=== PATIENT | male | born 1965 | race Caucasian/White ===

== ENCOUNTER 2016-12-09 18:55 | Emergency (ER) | payer MEDICARE, MEDICAID ==
[2016-12-09] MEDS ORDERED: Tetan/Diph/Pertus SYR(Tdap)* 0.5 ML SYR(BOOSTRIX) use SYR IM ONE (19:40)
[2016-12-09] MEDS ORDERED: Ibuprofen TAB* 600 MG PO ONE (19:40)
--- NOTE | 2016-12-09 19:56 | ED ---
Upper Extremity Pain - HPI Summary HPI Summary: Patient was using a drill when it slipped and went into his left middle finger. He applied pressure to control bleeding. He has function in the digit. He does not know if his tetanus is up to date. He has not taken anything for pain. - History of Current Complaint Chief Complaint: EDExtremityUpper Stated Complaint: FINGER LAC Time Seen by Provider: 12/09/16 19:29 Hx Obtained From: Patient Mechanism Of Injury: Penetrating Trauma - drill Onset/Duration: Started Minutes Ago, Traumatic, Still Present Timing: Constant Severity Initially: Severe Severity Currently: Severe Pain Location: Finger Character: Sharp, Aching, Throbbing Aggravating Factor(s): Movement Alleviating Factor(s): Nothing Associated Signs & Symptoms: Positive: Negative Related History: Dominant Hand Right - Allergies/Home Medications Allergies/Adverse Reactions: Allergies Allergy/AdvReac Type Severity Reaction Status Date / Time No Known Allergies Allergy Verified 12/09/16 19:14 PMH/Surg Hx/FS Hx/Imm Hx Endocrine/Hematology History: Denies: Hx Anticoagulant Therapy Cardiovascular History: Reports: Hx Hypertension Respiratory History: Reports: Hx Asthma - pt denies, Hx Chronic Obstructive Pulmonary Disease (COPD) - pt denies Psychiatric History: Denies: Hx Eating Disorder, Hx of Violent Episodes Against Others Infectious Disease History: No Infectious Disease History: Denies: Traveled Outside the [place] in Last 30 Days - Family History Known Family History: Positive: None - Social History Occupation: Employed Full-time Lives: With Family Alcohol Use: Daily Alcohol Amount: 4 beers Substance Use Type: Reports: None Smoking Status (MU): Heavy Every Day Tobacco Smoker Cessation Counseling: Patient Advised to Stop Review of Systems Positive: Myalgia Positive: Other - 2.5 cm V-flap laceration to volar aspect of left middle finger Negative: Paresthesia, Numbness All Other Systems Reviewed And Are Negative: Yes Physical Exam Triage Information Reviewed: Yes Vital Signs On Initial Exam: Initial Vitals Temp Pulse Resp BP Pulse Ox 99.6 F 73 16 144/95 99 12/09/16 19:10 12/09/16 19:10 12/09/16 19:10 12/09/16 19:10 12/09/16 19:10 Vital Signs Reviewed: Yes Appearance: Positive: Well-Appearing, Pain Distress, Obese Skin: Positive: Warm, Skin Color Reflects Adequate Perfusion, Dry, Tender - 2.5 cm V-flap laceration to volar aspect of left middle finger, Soft Head/Face: Positive: Normal Head/Face Inspection Eyes: Positive: EOMI, MARYAM, Conjunctiva Clear ENT: Positive: Hearing grossly normal Respiratory/Lung Sounds: Positive: Breath Sounds Present Cardiovascular: Positive: RRR Musculoskeletal: Positive: Strength/ROM Intact, Pain @ - TTP middle phalanx of left middle digit Neurological: Positive: Sensory/Motor Intact, Alert, Oriented to Person Place, Time, NV Bundle Intact Distally Psychiatric: Positive: Affect/Mood Appropriate AVPU Assessment: Alert Procedures - Laceration/Wound Repair 1 Location: upper extremity - left middle digit Description: Linear - V-flap Anesthesia: Local, 2.0%, Lido Length, Depth and Shape: 2.5 cm V-flap long, 5mm wide, 3mm deep. Betadine Prep?: No Irrigated w/ Saline (ccs): 300 Laceration/Wound Explored: clean Closure: Single Layer Debridement: minimal Suture Type: Nylon - 4.0 Number of Sutures: 9 Layer Closure?: No Sterile Dressing Applied?: Yes Diagnostics - Vital Signs Vital Signs Temp Pulse Resp BP Pulse Ox 12/09/16 19:42 99.6 F 73 16 144/95 99 12/09/16 19:10 99.6 F 73 16 144/95 99 - Laboratory Lab Statement: Any lab studies that have been ordered have been reviewed, and results considered in the medical decision making process. - Radiology No standard instances Xray Interpretation: No Acute Changes Radiology Interpretation Completed By: Radiologist Course/Dx - Diagnoses Differential Diagnosis/HQI/PQRI: Positive: Arthritis, Bursitis, Contusion, Fracture (Closed), Laceration, Strain, Sprain Provider Diagnoses: Laceration Discharge - Discharge Plan Condition: Stable Disposition: HOME Prescriptions: Ibuprofen TAB* [Motrin TAB* 600 MG] 600 mg PO TID PRN #30 tab PRN Reason: Pain Patient Education Materials: Tetanus Toxoid (By injection), Finger Laceration ( ED) Referrals: Tomi Da Silva DO [Primary Care Provider] - Additional Instructions: Keep your dressing clean, dry and in place for the next 48 hours. You may then remove and shower. Pat dry and cover with a clean, dry band-aid if you are going to be in a "dirty" environment, otherwise it can remain open to air. Do not soak the wound in any body of water until the sutures are removed. Elevate the hand above your heart and use Ibuprofen 600mg three times daily with meals for the next 5-7 days to reduce pain and swelling. Follow-up with your primary care provider or return to the emergency department in 10-12 days for suture removal. Return to the emergency department sooner if your symptoms worsen.
[2016-12-09] MEDS ORDERED: oxyCODONE/Acetamin 5/325 MG* TAB PO ONE (20:25)
--- NOTE | 2016-12-09 20:35 | RAD ---
Indication: Left hand injury. 4 views of left hand demonstrates no fracture or dislocation. No radiopaque foreign body is noted. No other bone or joint abnormalities identified. Soft tissue defect is noted in the middle finger in the volar aspect overlying the middle phalanx. IMPRESSION: No radiopaque foreign body or fracture is noted. Soft tissue defect on the volar aspect of the third finger at the level of the middle phalanx.
[2016-12-09 21:18] VITALS: BP 114/71
== END 2016-12-09 21:17 | disposition home or self-care (01) ==
LOC: ED 18:55
DX: S61.213A Laceration without foreign body of left middle finger without damage to nail, initial encounter (principal); M79.1 Myalgia; W29.8XXA Contact with other powered hand tools and household machinery, initial encounter; Y93.9 Activity, unspecified; Y92.9 Unspecified place or not applicable
CPT/HCPCS: 90715; 96374; 99283; A9270-GY

== ENCOUNTER 2019-04-22 00:45 | Inpatient (IN) | payer MEDICARE, MEDICAID ==
[2019-04-22] MEDS ORDERED: Aspirin 81 mg CHEW TAB* 81 MG TAB.CHEW ONE (00:47)
[2019-04-22] MEDS ORDERED: Ticagrelor* 90 MG TAB PO ONE (00:50)
[2019-04-22] MEDS ORDERED: NS 0.9% 1000 ML** 1,000 ML IV ONE (00:50)
[2019-04-22] MEDS ORDERED: Aspirin 81 mg CHEW TAB* 81 MG TAB.CHEW PO ONE (00:50)
[2019-04-22] MEDS ORDERED: Heparin for STEMI(*) 5,000 UNITS/ML 1 ML VIAL IV ONE (00:50)
--- NOTE | 2019-04-22 01:00 | ED ---
HPI Chest Pain - HPI Summary HPI Summary: This patient is a 54 year old M presenting to [facility] via EMS with a chief complaint of CP since an hour ago. CP woke patient from rest, was 10/10 crushing L sided pain. Pt was diaphoretic when EMS arrived. Pt was given fluid and adenosine for SVT. Post adenosine EKG w elevations in aVR, dep I, II, V45. Patient states pain slightly better, states he never had this pain before. Denies ESCALANTE, exertional CP. Pt is a smoker and smokes 1 pack per day. Pt has HTN and high cholesterol, but ran out of his medication. No FHx of HTN or diabetes. - History of Current Complaint Time Seen by Provider: 04/22/19 00:50 Hx Obtained From: Patient, EMS Onset/Duration: Started Hours Ago - 1 Initial Severity: Moderate Current Severity: Moderate Pain Intensity: 0 Pain Scale Used: 0-10 Numeric Aggravating Factor(s): Nothing Alleviating Factor(s): Nothing Associated Signs and Symptoms: Positive: Chest Pain - Allergy/Home Medications Allergies/Adverse Reactions: Allergies Allergy/AdvReac Type Severity Reaction Status Date / Time No Known Allergies Allergy Verified 12/09/16 19:14 PMH/Surg Hx/FS Hx/Imm Hx Previously Healthy: No Endocrine/Hematology History: Denies: Hx Anticoagulant Therapy Cardiovascular History: Reports: Hx Hypertension Respiratory History: Reports: Hx Asthma - pt denies, Hx Chronic Obstructive Pulmonary Disease (COPD) - pt denies Psychiatric History: Denies: Hx Eating Disorder, Hx of Violent Episodes Against Others - Surgical History Surgical History: None - Family History Known Family History: Positive: None - Social History Alcohol Use: Daily Alcohol Amount: 4 beers Substance Use Type: Reports: None Smoking Status (MU): Heavy Every Day Tobacco Smoker Review of Systems Negative: Fever Positive: Chest Pain All Other Systems Reviewed And Are Negative: Yes Physical Exam - Summary Physical Exam Summary: Constitutional: Mildly ill-appearing, Alert. (-) Distressed Skin: Warm, Dry HENT: Normocephalic; Atraumatic Eyes: Conjunctiva normal Neck: Musculoskeletal ROM normal neck. (-) JVD, (-) Stridor, (-) Nuchal rigidity Cardio: Rhythm regular, rate normal, Heart sounds normal; Intact distal pulses; Radial pulses are 2+ and symmetric. (-) Murmur Pulmonary/Chest wall: Effort normal. (-) Respiratory distress, (-) Wheezes, (-) Rales Abd: Soft, (-) tenderness, (-) Distension, (-) Guarding, (-) Rebound Musculoskeletal: (-) Edema Lymph: (-) Cervical adenopathy Neuro: Alert, Oriented x3 Psych: Mood and affect Normal Triage Information Reviewed: Yes Vital Signs Reviewed: Yes Diagnostics - Laboratory Result Diagrams: 04/22/19 00:54 04/22/19 00:54 Lab Statement: Any lab studies that have been ordered have been reviewed, and results considered in the medical decision making process. 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 Initially in SVT with EMS, status post 6 of adenosine now with elevations in aVR consistent with acute STEMI. STEMI called at 00:43, given aspirin 324, brillinta, heparin - Diagnoses Provider Diagnoses: STEMI (ST elevation myocardial infarction) - Provider Notifications Discussed Care Of Patient With: Wilson Lopes Time Discussed With Above Provider: 00:54 Instructed by Provider To: Other - Dr. Lopes will come to see the pt now. At 0123, Dr. Lopes is in the room with the pt. - Critical Care Time Critical Care Time: 30-74 min - 30 min Discharge ED - Sign-Out/Discharge Documenting (check all that apply): Patient Departure - admit Patient Received Moderate/Deep Sedation with Procedure: No - Discharge Plan Condition: Stable Disposition: ADMITTED TO [facility] - Billing Disposition and Condition Condition: STABLE Disposition: Admitted to [facility] - Attestation Statements Document Initiated by Scribe: Yes Documenting Scribe: Memo Crouch Provider For Whom Scribe is Documenting (Include Credential): Dr. Yanni Clark MD Scribe Attestation: I, Memo Crouch, scribed for Dr. Yanni Clark MD on 04/22/19 at 0204. Scribe Documentation Reviewed: Yes Provider Attestation: The documentation as recorded by the scribe, Memo Crouch accurately reflects the service I personally performed and the decisions made by me, Dr. Yanni Clark MD Status of Scribe Document: Viewed
[2019-04-22] MEDS ORDERED: VERAPAMIL 2.5 MG/ML 2 ML VIAL ** 5 mg/2 ml ONE (01:09)
[2019-04-22] MEDS ORDERED: Midazolam* 1 MG/ML 5 ML VIAL (5 MG) ONE (01:09)
[2019-04-22] MEDS ORDERED: fentaNYL* 50 MCG/ML 2 ML VIAL (100 MCG VIAL) ONE (01:09)
[2019-04-22] MEDS ORDERED: Heparin(*) 1000 UNIT/ML 10 ML VIAL CATH LAB IV ONE ×2 (01:09→02:26)
[2019-04-22] MEDS ORDERED: Iohexol 350 (CONTRAST) 200 ML MDV IV ONE ×3 (01:10→02:32)
[2019-04-22] MEDS ORDERED: Iodixanol 320 (CONTRAST) 100 ML SDV ONE (01:10)
[2019-04-22] MEDS ORDERED: nitroGLYCERIN DRIP* 25,000 MCG/250 ML BTL ONE (01:10)
[2019-04-22] MEDS ORDERED: Heparin 2 UNITS/ML IVPREMIX* 2,000 ML IV ONE (01:10)
[2019-04-22] MEDS ORDERED: Lidocaine 1% INJ* 10 MG/ML 30 ML SDV ONE (01:10)
[2019-04-22 01:13] LABS: ABS Basophils 0.1 10^3/ul (0-0.2); ABS Eosinophils 0.1 10^3/ul (0-0.6); ABS Lymphocytes 2.6 10^3/ul (1.0-4.8); ABS Monocytes 0.6 10^3/ul (0-0.8); ABS Neutrophils 7.4 10^3/ul (1.5-7.7); Eosinophil % 0.8 %; Hematocrit 47 % (42-52); Hemoglobin 16.5 g/dL (14.0-18.0); Lymphocyte % 23.8 %; Mean Corpuscular HGB Conc 35 g/dL (31-36); Mean Corpuscular Hemoglobin 34 pg (27-31); Mean Corpuscular Volume 97 fL (80-94); Mean Platelet Volume 7.9 fL (7.4-10.4); Nucleated Red Blood Cells % 0.1; Platelet Count 220 10^3/uL (150-450); Red Blood Count 4.83 10^6 /uL (4.18-5.48); Red Cell Distribution Width 14 % (10-15); White Blood Count 10.8 10^3/uL (3.5-10.8)
[2019-04-22 01:22] LABS: ALT 34 U/L (7-52); AST 23 U/L (13-39); Activated Partial Thrombo Time 33.6 seconds (26.0-38.0); Albumin 4.2 g/dL (3.2-5.2); Albumin/Globulin Ratio 1.6 (1-3); Alkaline Phosphatase 95 U/L (34-104); Anion Gap 10 mmol/L (2-11); BUN/Creatinine Ratio 13.2 (8-20); Blood Urea Nitrogen 12 mg/dL (6-24); CO2 Carbon Dioxide 22 mmol/L (22-32); Calcium 8.7 mg/dL (8.6-10.3); Chloride 107 mmol/L (101-111); Creatine Kinase 135 U/L (10-223); EGFR African American 105.1 (>60); EGFR Non-African American 86.8 (>60); Globulin 2.6 g/dL (2-4); Glucose 156 mg/dL (70-100); INR 0.92 (0.82-1.09); LDL Cholesterol Direct 165 mg/dL; Potassium 3.6 mmol/L (3.5-5.0); Sodium 139 mmol/L (135-145); Total Protein 6.8 g/dL (6.4-8.9)
[2019-04-22 01:27] LABS: Myoglobin 146.3 ng/mL (17.4-105.7)
[2019-04-22 01:32] LABS: Troponin I 0.07 ng/mL (<0.04)
[2019-04-22] MEDS ORDERED: Nitroglycerin TAB 0.4 MG* 0.4 MG TAB SL PRN (02:52)
[2019-04-22] MEDS ORDERED: Acetaminophen TAB* 325 MG PO PRN (02:52)
[2019-04-22] MEDS ORDERED: NS 0.9% 1000 ML** 1,000 ML IV SCH (03:00)
[2019-04-22] MEDS: Metoprolol Tartrate TAB* 25 MG PO SCH ×3 (03:12→14:19)
[2019-04-22 03:25] LABS: Cholesterol 214 mg/dL; HDL Cholesterol 43.7 mg/dL; LDL Cholesterol 129 mg/dL; Triglycerides 209 mg/dL
[2019-04-22 03:41] LABS: TSH (Thyroid Stimulating Horm) 5.17 mcIU/mL (0.34-5.60)
[2019-04-22 03:51] LABS: Anion Gap 5 mmol/L (2-11); BUN/Creatinine Ratio 12.4 (8-20); Blood Urea Nitrogen 11 mg/dL (6-24); CO2 Carbon Dioxide 24 mmol/L (22-32); Calcium 8.4 mg/dL (8.6-10.3); Chloride 106 mmol/L (101-111); EGFR African American 107.8 (>60); EGFR Non-African American 89.1 (>60); Glucose 130 mg/dL (70-100); Potassium 4.6 mmol/L (3.5-5.0); Sodium 135 mmol/L (135-145)
[2019-04-22 03:56] LABS: CKMB ng/mL 29.8 ng/mL (0.6-6.3)
[2019-04-22 03:57] LABS: Troponin I 1.89 ng/mL (<0.04)
[2019-04-22] MEDS ORDERED: Captopril TAB* 12.5 MG PO SCH ×2 (04:00→14:00)
[2019-04-22] MEDS ORDERED: Nicotine PATCH 14 MG/24 HR* PATCH TRANSDERM SCH (04:00)
[2019-04-22] MEDS ORDERED: Captopril TAB* 12.5 MG PO ONE (07:00)
[2019-04-22] MEDS: Aspirin 81 mg CHEW TAB* 81 MG TAB.CHEW PO SCH (07:30)
[2019-04-22] MEDS: Ticagrelor* 90 MG TAB PO SCH ×2 (07:30→20:28)
[2019-04-22] MEDS ORDERED: Influenza VAC *QUAD* 2019-20* 0.5 ML SYRINGE IM ONE (09:00)
[2019-04-22 09:25] LABS: CKMB ng/mL 50.9 ng/mL (0.6-6.3)
[2019-04-22 09:40] LABS: Glucose 110 mg/dL (70-100); Troponin I 6.41 ng/mL (<0.04)
[2019-04-22] MEDS ORDERED: Captopril TAB* 25 MG PO ONE (11:45)
--- NOTE | 2019-04-22 12:30 | HP ---
CC: Dr. Kothari; Dr. Lopes HISTORY AND PHYSICAL: DATE OF ADMISSION: 04/22/19 PRIMARY CARE PHYSICIAN: Dr. Kothari in [place]. HISTORY OF PRESENT ILLNESS: A 54-year-old diabetic with hypertension and hyperlipidemia, presented to the ER with acute inferior wall ST elevation infarct on EKG after conversion from atrial flutter to sinus rhythm with IV adenosine by EMS. He has no previous cardiac history. He is a fairly vague historian. He last saw his primary care providers last winter, subsequently ran out of his blood pressure and cholesterol medications. He has been "too busy to get them renewed , but was planning on making an appointment." About 3 years ago, he lost about 100 pounds and tells me he was taken off his diabetic medications and has not been diabetic since. He denies any recent exercise intolerance, previous chest pain, or shortness of breath. He denies any history of palpitations or syncope. At around 10:30 p.m. last night, he awoke from sleep with severe crushing chest pain, EMS documented atrial flutter at a rate of [address] elevation in III and ST depression in I, aVL, V2 through V6. Post conversion EKG by EMS at 0034 hours demonstrated sinus bradycardia at [address] depression in I, II, aVL, V4 through V5 with very slight ST elevation in AVR and lead III. At evaluation in the ER, he was still complaining of mild chest discomfort. ER EKG again documented inferolateral ST depression; he underwent emergent catheterization after discussion of the procedure and risks. We in particular talked about his apparent medication noncompliance. I discussed with him frankly the importance of dual-antiplatelet therapy without interruption if he required stenting. He seems to fully understand the issue, committed to taking his medications as instructed in case he needed a stent. He has no other contraindications to dual antiplatelet therapy. PAST MEDICAL HISTORY: 1. Morbid obesity, he denies history of sleep apnea. 2. Hypertension, on no medications for at least 9 months. 3. Hyperlipidemia, again on no meds for 9 months. 4. History of diabetes, reportedly resolved with 100-pound weight loss. Hemoglobin A1c is pending. MEDICATIONS: Pre-hospital medications: None. MEDICATION ALLERGIES: None. FAMILY HISTORY: He denies any history of premature coronary artery disease. SOCIAL HISTORY: He is a [id number] smoker. REVIEW OF SYSTEMS: General: Per history, has lost about 100 pounds 3 years ago with resolution of diabetes. 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 GI: No history of peptic ulcer disease or bleeding. Heme: No history of malignancy or anemia. Circulatory: He denies claudication. He does report 3 weeks of mild dependent left leg edema without known history of varicosities, and without leg pain. Remainder of detailed review of systems negative. PHYSICAL EXAMINATION GENERAL: When seen in the ER, he was still complaining of mild chest discomfort and some arm tingling. He is morbidly obese, not in distress. VITAL SIGNS: His initial BP 175/106 with a heart rate in the 80s to 90s without ectopy. HEENT: Unremarkable without xanthelasma, scleral injection, or jaundice. EOM is normal. Cranial nerves grossly intact. NECK: JVP was not visibly elevated. Carotids were palpable without bruits. LUNGS: Without rales or wheezes. CARDIAC: RV and apex not palpable, heart sounds relatively distant. Regular rhythm, no gallop or murmur audible. ABDOMEN: Obese, nontender. No bruit, I cannot feel any organomegaly. Aorta not palpable, no abdominal bruits. Femoral pulses palpable without bruits. EXTREMITIES: Radial pulses 1+. Pedal pulses 1+. He has trace left ankle deep pitting edema. PSYCH: He is oriented and appropriate. SKIN: Warm and perfused. DIAGNOSTIC STUDIES/LAB DATA: EKG as above. His CBC is notable only for macrocytosis with MCV of 97. Coags normal. BMP on presentation notable for blood sugar of 156 with normal creatinine, potassium 3.6. Lactate elevated to 2.3, first troponin 0.07. LDL 129. Cholesterol 214, triglycerides 209, HDL 43.7. BNP normal at 55. TSH normal at 5.17. Direct LDL 165. Chest x-ray by my review of a portable film, no infiltrate, no heart failure. IMPRESSION AND PLAN: 1. Acute inferior wall ST-elevation infarct after conversion from atrial flutter to sinus bradycardia with IV adenosine in the field. As he still has repolarization changes with islam of sinus rhythm, still is having precordial chest pain with some arm tingling. He underwent emergent catheterization, although his presentation with supraventricular tachycardia raises possibility of type 2 infarct. Given his medication noncompliance, we had a detailed discussion regarding the importance of adherence to dual- antiplatelet therapy if he needed stenting, he seems to understand and committed to taking medications as required. 2. Hypertension, uncontrolled. 3. Morbid obesity. 4. Hyperlipidemia, uncontrolled. We will start a high-dose potent statin. 5. History of mild left leg dependent edema, likely due to venous insufficiency. This can be pursued as an outpatient. 6. Atrial Flutter. New Dx. B juan [id number]/[facility] #: [id number] MIGUEL ÁNGELD
[2019-04-22] MEDS: Captopril TAB* 25 MG PO SCH ×2 (14:00→20:28)
[2019-04-22] MEDS ORDERED: Atorvastatin* 80 MG TAB PO SCH (17:00)
[2019-04-22 17:14] LABS: CKMB ng/mL 41.6 ng/mL (0.6-6.3)
[2019-04-22 17:19] LABS: Troponin I 5.53 ng/mL (<0.04)
[2019-04-22 17:22] LABS: Glucose 137 mg/dL (70-100)
--- NOTE | 2019-04-22 17:43 | CATH ---
CC: Dr. Kothari in [place].* CATH REPORT: DATE OF PROCEDURE: 04/22/19 - ROOM #442 PRIMARY GROUNDS WORKER: Dr. Kothari in [place]. HISTORY: A 54-year-old diabetic hypertensive morbidly obese male presenting with inferior ST elevation infarct after conversion to sinus rhythm with IV adenosine by EMS. PROCEDURE: Right radial artery access with ultrasound guidance. SHEATH: 6F slender. MEDICATIONS: 1. Heparin 4000 units. 2. Brilinta 180 mg loading dose in the ER. SEE WHEELER MEDS: 1. Subcu lidocaine. 2. IV Versed. 3. IV fentanyl. 4. Nitroglycerin 300 mcg. 5. Verapamil 3 mg IA. 6. Heparin 15,000 units IV total. DIAGNOSTIC CATHETERS: 5F TIG 4, 5FL 3.5, 5F pigtail. Guiding catheter: Circumflex 6 FV L3.5 wire ALL STAR 14, which would not cross the side branch of the distal circumflex branch even with the support balloon, was therefore presumed to be a PRIVATE PILOT and not the culprit lesion. RCA guiding catheter: 6FR4 wire 14 BMW. Used to deploy a 2.75 x 12 Synergy drug- eluting stent in the mid-RPDA, subsequent post dilatation with a 2.75 x 12 NC balloon, 16 atmospheres, 30 seconds. A 5-Danish pigtail was then used for left heart catheterization and left ventriculography. Hemodynamics: Initial AO 147/94, LV post revascularization, 158/18 - 23, no aortic valve gradient on pull back. ANGIOGRAPHY: RCA: The RCA is large, dominant, there is 30% eccentric proximal stenosis. The acute marginal branch supplies to PDA which is relatively large, mid portion has an 80% stenosis with some haziness with likely thrombus. The RCA continuation supplies a small and then a larger posterior lateral. The distal PDA has normal flow. Left Main: The left main is normal in size, has mild distal taper to a 20% to 30% stenosis. LAD: The LAD is moderate, extends past the apex, it has proximal scattered luminal irregularity, supplies several small diagonals followed by a moderate mid diagonal, which has mild proximal luminal irregularity. The LAD after the mid diagonal has 40% stenosis, distally the LAD ends past the apex. Circumflex: The circumflex is not dominant, is large with a moderate first marginal which has luminal irregularity, a small second marginal, the third marginal bifurcates proximally, the lower side branch is occluded a few millimeters from the origin, the distal portion of the vessel fills by left to left collaterals. This was approached initially given his posterior ST depression and preserved flow in the RPDA. However, even with the supporting balloon, the occlusion could not be crossed. It is presumed to be a PRIVATE PILOT, angiographically was unchanged post attempted intervention. RCA: Post intervention has no residual stenosis in the PDA, with normal flow. LV gram: There is minimal mid inferior hypokinesis with normal LV EF of 55% to 60%. CONCLUSION: 1. 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 He has fairly diffuse non-obstructive atherosclerotic plaquing, needs aggressive secondary risk factor modification. Delay in DBT due to initial inability to identify culprit lesion. Cx was approached first due to nl flow in RPDA and diffuse posterior ST depression, was presumed PRIVATE PILOT after inability to cross. 2. Elevated LVDP consistent with diastolic dysfunction. 3. Successful right radial artery access. 4. Normal LVEF with very mild regional wall motion abnormality. [id number]/[facility] #: [id number] [facility]
[2019-04-22] MEDS ORDERED: Nicotine Patch Removal NOTE PATCH OFF SCH (21:00)
[2019-04-22] MEDS: Metoprolol Tartrate TAB* 50 mg PO SCH (21:31)
[2019-04-23] MEDS: Metoprolol Tartrate TAB* 50 mg PO SCH ×2 (05:20→14:04)
[2019-04-23] MEDS: Aspirin 81 mg CHEW TAB* 81 MG TAB.CHEW PO SCH (08:08)
[2019-04-23] MEDS: Ticagrelor* 90 MG TAB PO SCH (08:08)
[2019-04-23] MEDS: Captopril TAB* 25 MG PO SCH (08:28)
[2019-04-23] MEDS ORDERED: Nicotine PATCH 14 MG/24 HR* PATCH TRANSDERM SCH (09:00)
[2019-04-23] MEDS ORDERED: Captopril TAB* 12.5 MG PO ONE (09:42)
--- NOTE | 2019-04-23 09:48 | PN ---
<Kristen Recinos - Last Filed: 04/23/19 09:43> Subjective Date of Service: 04/23/19 - AFL s/p CV subsequent inferior STEMI Interval History: No events last night. Apparently patient had a headache that resolved with Tylenol, no recurrent c/o headache since. No c/o chest pain, sob, dizziness, palpitations. Patient is anxious to go home he is asking if he can shower. Medications Active Medications: Acetaminophen (Tylenol Tab*) 650 mg PO Q4H PRN PRN Reason: MILD PAIN or TEMP > 100.4 Last Admin: 04/22/19 20:27 Dose: 650 mg Aspirin (Aspirin 81 Mg Chew Tab*) 81 mg PO DAILY [facility] Last Admin: 04/23/19 08:08 Dose: 81 mg Atorvastatin Calcium (Lipitor*) 80 mg PO 1700 [facility] Last Admin: 04/22/19 18:13 Dose: 80 mg Captopril (Capoten Tab*) 37.5 mg PO TID [facility] Metoprolol Tartrate (Lopressor Tab*) 50 mg PO Q8H [facility] Last Admin: 04/23/19 05:20 Dose: 50 mg Nicotine (Nicotine Patch 14 Mg/24 Hr*) 1 patch TRANSDERM DAILY [facility] Last Admin: 04/23/19 08:08 Dose: 1 patch Nitroglycerin (Nitroglycerin Tab 0.4 Mg*) 0.4 mg SL Q5M PRN PRN Reason: ANGINA Pharmacy Profile Note (Nicotine Patch Removal Note*) 1 note PATCH OFF 2100 [facility] Last Admin: 04/22/19 20:28 Dose: 1 note Ticagrelor (Brilinta*) 90 mg PO BID [facility] Last Admin: 04/23/19 08:08 Dose: 90 mg Objective Vital Signs: Temp Pulse Resp BP Pulse Ox 97.1 F 63 20 192/84 97 04/23/19 07:41 04/23/19 08:29 04/23/19 08:00 04/23/19 09:42 04/23/19 07:41 Oxygen Devices in Use Now: None Appearance: sitting in chair, NAD, A+O x3. Ears/Nose/Mouth/Throat: NL Teeth, Lips, Gums, Clear Oropharnyx, Mucous Membranes Moist Neck: NL Appearance and Movements; NL JVP, - - + harsh right carotid bruit, soft left carotid bruit Respiratory: Clear to Auscultation Cardiovascular: NL Sounds; No Murmurs; No JVD, RRR, No Edema Abdominal: NL Sounds; No Tenderness; No Distention Extremities: No Edema, - - right radial access is soft, non tender, strong radial pulse, no thrill Skin: No Rash or Ulcers Neurological: Alert and Oriented x 3 Lines/Tubes/Other Access: Clean, Dry and Intact Peripheral IV Laboratory Results: 04/22/19 00:54 04/22/19 03:15 INR (Anticoag Therapy) 0.92 (0.82-1.09) 04/22/19 00:54 APTT 33.6 seconds (26.0-38.0) 04/22/19 00:54 Total Bilirubin 0.50 mg/dL (0.2-1.0) 04/22/19 00:54 AST 23 U/L (13-39) 04/22/19 00:54 ALT 34 U/L (7-52) 04/22/19 00:54 Alkaline Phosphatase 95 U/L (34-104) 04/22/19 00:54 CK-MB (CK-2) 41.6 ng/mL (0.6-6.3) H 04/22/19 16:21 B-Natriuretic Peptide 55 pg/mL (<=100) 04/22/19 00:54 Total Protein 6.8 g/dL (6.4-8.9) 04/22/19 00:54 Albumin 4.2 g/dL (3.2-5.2) 04/22/19 00:54 Globulin 2.6 g/dL (2-4) 04/22/19 00:54 Albumin/Globulin Ratio 1.6 (1-3) 04/22/19 00:54 Triglycerides 209 mg/dL 04/22/19 00:54 Cholesterol 214 mg/dL 04/22/19 00:54 LDL Cholesterol 129 mg/dL 04/22/19 00:54 HDL Cholesterol 43.7 mg/dL 04/22/19 00:54 TSH 5.17 mcIU/mL (0.34-5.60) 04/22/19 00:54 04/22/19 04/22/19 04/22/19 00:54 03:15 08:52 Troponin I 0.07 H* 1.89 H* 6.41 H* 04/22/19 16:21 Troponin I 5.53 H* Laboratory Results - last 24 hr 04/22/19 04/22/19 04/22/19 03:15 12:10 16:21 Glucose 137 H POC Glucose (mg/dL) 89 Hemoglobin A1c 6.4 H CK-MB (CK-2) 41.6 H Troponin I 5.53 H* 04/23/19 07:12 Glucose POC Glucose (mg/dL) 105 H Hemoglobin A1c CK-MB (CK-2) Troponin I Diagnostic Imaging: Cardiac Catheterization Report Patient: JUSTIN SMITH /Age: 0702/14/1965 54 Medical Record#: [id number] Admission Date: 04/22/19 Provider: Wilson Lopes MD CC: Dr. Kothari in [place].* CATH REPORT: DATE OF PROCEDURE: 04/22/19 - ROOM #442 PRIMARY POTATO PICKER: Dr. Kothari in [place]. HISTORY: A 54-year-old diabetic hypertensive morbidly obese male presenting with inferior ST elevation infarct after conversion to sinus rhythm with IV adenosine by EMS. PROCEDURE: Right radial artery access with ultrasound guidance. SHEATH: 6F slender. MEDICATIONS: 1. Heparin 4000 units. 2. Brilinta 180 mg loading dose in the ER. 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 Subcu lidocaine. 2. IV Versed. 3. IV fentanyl. 4. Nitroglycerin 300 mcg. 5. Verapamil 3 mg IA. 6. Heparin 15,000 units IV total. DIAGNOSTIC CATHETERS: 5F TIG 4, 5FL 3.5, 5F pigtail. Guiding catheter: Circumflex 6 FV L3.5 wire ALL STAR 14, which would not cross the side branch of the distal circumflex branch even with the support balloon, was therefore presumed to be a ROPEWALK ROPE MAKER and not the culprit lesion. RCA guiding catheter: 6FR4 wire 14 BMW. Used to deploy a 2.75 x 12 Synergy drug- eluting stent in the mid- RPDA, subsequent post dilatation with a 2.75 x 12 NC balloon, 16 atmospheres, 30 seconds. A 5-Sami pigtail was then used for left heart catheterization and left ventriculography. Hemodynamics: Initial AO 147/94, LV post revascularization, 158/18 - 23, no aortic valve gradient on pull back. This report is only to be considered final once signed by the Provider(s) as displayed in the "<Electronically Signed by >" field (s). Absence of a signature indicates the report is in a draft status and still needs to be finalized. In the event this document was created by someone other than the signing Provider, the individual initiating the document will be listed in the "Entered by:" or "Dictated by:" webster. 1 of 2 EKG Data: 04/23/2019; Sinus brdycardia rate 51 with anterolateral biphasix TW, + inferior Q waves Telemetry; reviewed. Sinus rhythm rate 50's with rare ventricular couplet and triplet. Assessment/Plan #1 Inferior STEMI s/p LILIA/RPDA 04/22/2019. He has known ROPEWALK ROPE MAKER distal Lcx side branch that will be treated medically. LVEF preserved on LV gram. Troponin peaked on 04/22/2019 at 6.41. He is on ASA 81/day, Brilinta 90mg Po BID. He will need uninterrupted DAPT x12 months given presentation was STEMI. Will continue Lopressor 50mg PO TID. unable to titrate due to HR. Continue Lipitor 80QHS. No recurrent c/o chest pain. Right radial access is intact, no evidence of hematoma. #2 Resistant HTN; SBP 192 on manual BP obtained by RN. Unable to increase Lopressor due to relative bradycardia. Will increase Captopril to 37.5mg PO TID. He may have DEONDRE given known CAD, Type 2 DM with + harsh carotid bruit. Will consider outpatient abdominal US. #3 +Harsh right carotid bruit. Will update duplex. Had c/o headache last night which could be due to above #2. No recurrent complaints. On ASA and statin therapy. Patient needs to stop smoking! #4 HLD; LDL goal < 70 due to above #1. On Lipitor 80 QHS. #5 h/o DM; HgbA1C 6.4%. #6 Disposition pending course. Will update carotid duplex. Uptitrate Captopril and consider adding Norvasc depending on clinical response to therapy. It is possible he has DEONDRE which is contributing to resistant HTN. D/W Dr. Lopes who agrees with plan of care. Attending: Wilson Lopes <Wilson Lopes - Last Filed: 04/23/19 14:11> Medications Active Medications: Acetaminophen (Tylenol Tab*) 650 mg PO Q4H PRN PRN Reason: MILD PAIN or TEMP > 100.4 Last Admin: 04/22/19 20:27 Dose: 650 mg Aspirin (Aspirin 81 Mg Chew Tab*) 81 mg PO DAILY [facility] Last Admin: 04/23/19 08:08 Dose: 81 mg Atorvastatin Calcium (Lipitor*) 80 mg PO 1700 [facility] Last Admin: 04/22/19 18:13 Dose: 80 mg Captopril (Capoten Tab*) 37.5 mg PO TID [facility] Last Admin: 04/23/19 14:04 Dose: 37.5 mg Metoprolol Tartrate (Lopressor Tab*) 50 mg PO Q8H [facility] Last Admin: 04/23/19 14:04 Dose: 50 mg Nicotine (Nicotine Patch 14 Mg/24 Hr*) 1 patch TRANSDERM DAILY [facility] Last Admin: 04/23/19 08:08 Dose: 1 patch Nitroglycerin (Nitroglycerin Tab 0.4 Mg*) 0.4 mg SL Q5M PRN PRN Reason: ANGINA Pharmacy Profile Note (Nicotine Patch Removal Note*) 1 note PATCH OFF 2100 [facility] Last Admin: 04/22/19 20:28 Dose: 1 note Ticagrelor (Brilinta*) 90 mg PO BID [facility] Last Admin: 04/23/19 08:08 Dose: 90 mg Objective Vital Signs: Temp Pulse Resp BP Pulse Ox 96.1 F 58 20 177/83 97 04/23/19 11:32 04/23/19 11:32 04/23/19 11:32 04/23/19 11:32 04/23/19 11:32 Laboratory Results: 04/22/19 00:54 04/22/19 03:15 INR (Anticoag Therapy) 0.92 (0.82-1.09) 04/22/19 00:54 APTT 33.6 seconds (26.0-38.0) 04/22/19 00:54 Total Bilirubin 0.50 mg/dL (0.2-1.0) 04/22/19 00:54 AST 23 U/L (13-39) 04/22/19 00:54 ALT 34 U/L (7-52) 04/22/19 00:54 Alkaline Phosphatase 95 U/L (34-104) 04/22/19 00:54 CK-MB (CK-2) 41.6 ng/mL (0.6-6.3) H 04/22/19 16:21 B-Natriuretic Peptide 55 pg/mL (<=100) 04/22/19 00:54 Total Protein 6.8 g/dL (6.4-8.9) 04/22/19 00:54 Albumin 4.2 g/dL (3.2-5.2) 04/22/19 00:54 Globulin 2.6 g/dL (2-4) 04/22/19 00:54 Albumin/Globulin Ratio 1.6 (1-3) 04/22/19 00:54 Triglycerides 209 mg/dL 04/22/19 00:54 Cholesterol 214 mg/dL 04/22/19 00:54 LDL Cholesterol 129 mg/dL 04/22/19 00:54 HDL Cholesterol 43.7 mg/dL 04/22/19 00:54 TSH 5.17 mcIU/mL (0.34-5.60) 04/22/19 00:54 04/22/19 04/22/19 04/22/19 00:54 03:15 08:52 Troponin I 0.07 H* 1.89 H* 6.41 H* 04/22/19 16:21 Troponin I 5.53 H* Assessment/Plan Agree w above.
[2019-04-23 11:32] VITALS: BP 177/83
[2019-04-23] MEDS ORDERED: Captopril TAB* 12.5 MG PO SCH (14:00)
[2019-04-23] MEDS ORDERED: Lisinopril TAB* 10 MG PO SCH (15:00)
--- NOTE | 2019-04-23 19:27 | DS ---
CC: Dr. Da Silva * DISCHARGE SUMMARY: DATE OF ADMISSION: 04/22/19 DATE OF DISCHARGE: 04/23/19 PRIMARY CARE PHYSICIAN: Dr. Da Silva. DISCHARGE DIAGNOSES: 1. Inferior wall ST elevation infarct. 2. Atrial flutter. 3. Morbid obesity. 4. Tobacco use. 5. Hypertension. 6. Hyperlipidemia. 7. Diabetes type 2. 8. Medication noncompliance. CONDITION ON DISCHARGE: Guarded. DISPOSITION: Leaving AMA for home. FOLLOWUP: Followup with Dr. Da Silva, to call for an appointment. Wrist check is scheduled with Dr. Esparza for next week. MOB 101, 05/01/19 at 3 p.m. DISCHARGE MEDICATIONS: 1. Aspirin 81 mg daily. 2. Lipitor 80 mg daily. 3. Lisinopril 20 mg daily. 4. Lopressor 50 mg t.i.d. 5. Nicotine patch 14 mg q.24 hours. 6. Nitroglycerin 0.4 sublingual p.r.n. 7. Brilinta 90 mg b.i.d. for a minimal of 1 year without interruption. DIET: Diabetic, low fat, low cholesterol. ACTIVITY: No strenuous exertion for the next week. WOUND CARE: Shower only for 3 days. HISTORY: See H and P. LABORATORY DATA: Post PCI, BMP remained stable with potassium of 4.6, creatinine of 0.89. His blood sugars ranged from 110 to 156 on blood draws and bedside monitoring. His troponin peaked at 6.4, MB at 50.9. EKG today shows sinus bradycardia, inferior Q waves with nonspecific ST-T wave changes. Carotid duplex revealed insignificant stenosis of the right carotid with a severe stenosis near the origin of the external carotid, the left internal carotid showed no significant stenosis. Vertebral flow was reversed with biphasic flow in the right subclavian artery as his cath and intervention was performed via the right radial approach without difficulty. Right subclavian artery significant stenosis is extremely unlikely, and he has no right arm symptoms of claudication. HOSPITAL COURSE: He presented with atrial flutter, converted to sinus bradycardia with IV adenosine by EMS. Post conversion, he still had inferior ST elevation with fairly diffuse ST depression and persisting symptoms. He underwent emergent catheterization via the right radial approach without difficulty. The RPDA had an 80% stenosis with preserved flow, he was still having chest discomfort although milder. His LAD had no significant stenosis. His very distal circumflex posterolateral branch had an occluded side branch with left to left collaterals. The posterolateral was probed with the a wire with a support catheter without ability to cross the occlusion point suggestive of a chronic total occlusion. Circumflex posterolateral intervention was then abandoned, this will be treated medically. The RPDA was stented with a 2.75 x 12 Synergy drug-eluting stent. LVEF was preserved at 55% with minimal mid inferior wall hypokinesis. He had a fairly small infarct by enzymes. Post cath and intervention, he had no right radial issues, had no arrhythmias or recurrence of flutter, had no chest pain or heart failure symptoms. He had been noncompliant with his meds, not taking any of his lipid medications or blood pressure medications for at least 8 to 10 months. Before cath he agreed to take meds as required including DAPT without interruption. His flutter is first known episode, his CHADS VASC score is 2. With h/o non compliance and presence of DAPT he was not started on anticoagulation. He was started on a beta -juan and JOSE inhibitor which were uptitrated with some improvement in his blood pressure. On the day that he is leaving against medical advice, his systolic blood pressure is 177 with a diastolic of 83, heart rate in the 50 to 60s with sinus bradycardia. On exam, his lungs are clear. Cardiac exam is normal. His right radial artery is patent. He has a high-grade right external carotid artery stenosis. Reversal of flow in the vertebral raised the possibility of subclavian stenosis , but as there was no difficulty with access via the right radial, I doubt that he has significant subclavian artery stenosis on the right side. He also has no right arm claudication. This can be pursued as an outpatient if it becomes an issue in the future. He was started on high dose statin therapy and dual-antiplatelet therapy. Before the cath and intervention, I had a samantha discussion with him about the importance of medication compliance if he received the stent and he agreed to take medications as required. He is leaving against medical advice but is stating that he is willing to get his prescriptions that had been called in, as well as keep his followup appointments, he is just not willing to stay in the hospital until tomorrow as was originally planned. He understands the increased risk of sudden without monitoring in the hospital setting. His hemoglobin A1c was 6.4, on no diabetic medications. He likely will need continued titration of his antihypertensives. He received full detailed discharge instructions including written down followup appointments for wrist check next week with Dr. Esparza, written recommendation to contact Dr. Da Silva' s office to schedule a followup appointment. He has not seen anybody in his primary care office since last April. He also received smoking cessation instruction and counseling, received full instructions regarding medication use , the importance of dual antiplatelet therapy without interruption, need to manage comorbidities including hypertension and hyperlipidemia as well as his tobacco use, weight loss and aerobic exercise. He expresses a desire to be more compliant with his medical management that he used to be prior to his infarct. [id number]/[facility] #: [id number] HÉCTOR
== END 2019-04-23 15:00 | disposition left against medical advice (07) | DRG 247 ==
LOC: ED 00:45 → CHICATH 01:45 → ICU 03:03 → MEDTELE 21:27
PROVIDERS: ADMIT Internal Medicine Cardiovascular Disease; ATTEND Internal Medicine Cardiovascular Disease
PROC: B2111ZZ Fluoroscopy of Multiple Coronary Arteries using Low Osmolar Contrast (ICD-10-PCS; 2019-04-22)
PROC: B2151ZZ Fluoroscopy of Left Heart using Low Osmolar Contrast (ICD-10-PCS; 2019-04-22)
PROC: 027034Z Dilation of Coronary Artery, One Artery with Drug-eluting Intraluminal Device, Percutaneous Approach (ICD-10-PCS; principal; 2019-04-22 01:15)
DX: I21.19 ST elevation (STEMI) myocardial infarction involving other coronary artery of inferior wall (principal); I48.92 Unspecified atrial flutter; E66.01 Morbid (severe) obesity due to excess calories; I10 Essential (primary) hypertension; F17.210 Nicotine dependence, cigarettes, uncomplicated; E78.00 Pure hypercholesterolemia, unspecified; E11.9 Type 2 diabetes mellitus without complications; R60.0 Localized edema; R00.1 Bradycardia, unspecified; I25.10 Atherosclerotic heart disease of native coronary artery without angina pectoris; I65.21 Occlusion and stenosis of right carotid artery; R51 Headache; Z68.38 Body mass index [BMI] 38.0-38.9, adult; Z72.89 Other problems related to lifestyle; Z91.14 Patient's other noncompliance with medication regimen; Z79.82 Long term (current) use of aspirin; Z79.02 Long term (current) use of antithrombotics/antiplatelets
CPT/HCPCS: 36415; 71045; 80048; 80053; 80061; 82550; 82553; 82947; 83036; 83605; 83721; 83874; 83880; 84443; 84484; 85025; 85347; 85610; 85730; 86850; 86900; 86901; 87641; 90686; 93005; 93452; 93880; 96360; 96361; 99156; 99157; 99285; A9270-GY; C1725; C1769; C1876; C1887; C9606-RC; J1644; J2250; J3010

== ENCOUNTER 2024-02-17 20:05 | Inpatient (IN) ==
[2024-02-17 20:30] LABS: ABS Eosinophils 0.1 10^3/uL (0.0-0.5); ABS Lymphocytes 1.9 10^3/uL (1.0-4.8); ABS Monocytes 0.4 10^3/uL (0.0-1.1); ABS Neutrophils 7.3 10^3/uL (1.5-7.6); ABS Nucleated RBC 0.02 10^3/ul; Eosinophil % 0.7 %; Hematocrit 46.9 % (38-53); Hemoglobin 16.3 g/dL (13.2-16.3); Lymphocyte % 19.2 %; Mean Corpuscular Hgb Conc 34.8 g/dL (31-36); Mean Corpuscular Volume 94.8 fL (80-97); Mean Platelet Volume 7.9 fL (7.5-11.2); Nucleated Red Blood Cells % 0.2 %/100WBC (0.0-0.8); Platelet Count 206 10^3/uL (150-450); Red Blood Count 4.95 10^6/uL (4.06-5.63); Red Cell Distribution Width 15.5 % (12-17); White Blood Count 9.7 10^3/uL (3.6-10.2)
[2024-02-17 21:21] LABS: INR 1.03 (0.83-1.13)
[2024-02-17 21:37] LABS: ABS Basophils 0.1 10^3/uL (0.0-0.1); ABS Eosinophils 0.1 10^3/uL (0.0-0.5); ABS Lymphocytes 1.4 10^3/uL (1.0-4.8); ABS Monocytes 0.5 10^3/uL (0.0-1.1); ABS Neutrophils 9.5 10^3/uL (1.5-7.6); Eosinophil % 0.5 %; Hemoglobin 14.5 g/dL (13.2-16.3); Lymphocyte % 12.3 %; Mean Corpuscular Hemoglobin 32.6 pg (27-33); Mean Corpuscular Hgb Conc 34.5 g/dL (31-36); Mean Corpuscular Volume 94.5 fL (80-97); Mean Platelet Volume 8.1 fL (7.5-11.2); Platelet Count 198 10^3/uL (150-450); Red Blood Count 4.44 10^6/uL (4.06-5.63); Red Cell Distribution Width 15.1 % (12-17); White Blood Count 11.6 10^3/uL (3.6-10.2)
[2024-02-17 21:51] LABS: Albumin 4.6 g/dL (3.2-5.2); Albumin/Globulin Ratio 1.6 (1-3); Creatinine, Serum 0.95 mg/dL (0.67-1.17); Globulin 2.8 g/dL (2-4); Potassium 3.8 mmol/L (3.5-5.0); Total Bilirubin 0.7 mg/dL (0.2-1.0); Total Protein 7.4 g/dL (6.4-8.9); eGFR CKD-EPI 92.2 (>60)
[2024-02-17] MEDS: Heparin 5000 UNITS/ML 1 mL VIAL IV SCH (21:56)
[2024-02-17] MEDS: Heparin DRIP 25,000 UNITS BAG 25,000 UNITS/250 ML BAG IV SCH (21:57)
[2024-02-17] MEDS ORDERED: Dextrose 50% Syringe 50 ml 25 GM/50 ML SYRINGE IV PUSH PRN (22:48)
[2024-02-17 23:36] LABS: Creatinine, Serum 0.85 mg/dL (0.67-1.17); eGFR CKD-EPI 100.1 (>60)
[2024-02-17 23:51] LABS: TSH Ultra Thyroid Stim Horm 2.23 mcIU/mL (0.34-5.60)
[2024-02-17 23:56] LABS: High Sensitivity Troponin 3 Hr 1820 pg/mL (<20)
[2024-02-18 03:36] LABS: ABS Basophils 0.3 10^3/uL (0.0-0.1); ABS Eosinophils 0.1 10^3/uL (0.0-0.5); ABS Lymphocytes 1.8 10^3/uL (1.0-4.8); ABS Monocytes 0.5 10^3/uL (0.0-1.1); ABS Neutrophils 7.2 10^3/uL (1.5-7.6); ABS Nucleated RBC 0.01 10^3/ul; Eosinophil % 0.9 %; Hematocrit 40.2 % (38-53); Hemoglobin 14.2 g/dL (13.2-16.3); Lymphocyte % 18.6 %; Mean Corpuscular Hemoglobin 33.5 pg (27-33); Mean Corpuscular Hgb Conc 35.4 g/dL (31-36); Mean Corpuscular Volume 94.7 fL (80-97); Mean Platelet Volume 8.4 fL (7.5-11.2); Nucleated Red Blood Cells % 0.1 %/100WBC (0.0-0.8); Platelet Count 202 10^3/uL (150-450); Red Blood Count 4.24 10^6/uL (4.06-5.63); Red Cell Distribution Width 15.1 % (12-17); White Blood Count 9.9 10^3/uL (3.6-10.2)
[2024-02-18 03:48] LABS: High Sensitivity Troponin 3 Hr 3354 pg/mL (<20)
[2024-02-18 05:22] LABS: Albumin/Globulin Ratio 1.7 (1-3); Calcium 9.3 mg/dL (8.6-10.3); Creatinine, Serum 0.74 mg/dL (0.67-1.17); Globulin 2.3 g/dL (2-4); HDL Cholesterol 48.3 mg/dL; Total Bilirubin 0.6 mg/dL (0.2-1.0); Total Protein 6.3 g/dL (6.4-8.9); eGFR CKD-EPI 104.4 (>60)
[2024-02-18] MEDS: Ondansetron 4 mg VIAL 2 MG/ML 2 ml VIAL IV PRN (05:58)
[2024-02-18] MEDS: FLUTICAS/UMECLI/VILANT 100-62.5-25 MDI (NF) INH SCH (07:35)
[2024-02-18] MEDS: Nicotine PATCH 21 MG/24 HR PATCH TRANSDERM SCH (09:35)
[2024-02-18 09:58] LABS: High Sensitivity Troponin 3 Hr 2650 pg/mL (<20)
[2024-02-18] MEDS: Insulin GLARGINE 100 un/ml 10 ml VIAL SUBCUT SCH (10:14)
[2024-02-18] MEDS: Sulfur Hexaflouride MICROSPHR 25 MG VIAL IV ONE (10:17)
[2024-02-18] MEDS: PTO: ICOSAPENT ETHYL 1 GM CAPSULE (NF) PO SCH (10:56)
[2024-02-18] MEDS: NF: ICOSAPENT ETHYL 1 GM CAPSULE (NF) PO SCH (10:59)
[2024-02-19 06:08] LABS: ABS Eosinophils 0.1 10^3/uL (0.0-0.5); ABS Lymphocytes 2.3 10^3/uL (1.0-4.8); ABS Monocytes 0.5 10^3/uL (0.0-1.1); ABS Neutrophils 5.1 10^3/uL (1.5-7.6); ABS Nucleated RBC 0.01 10^3/ul; Eosinophil % 0.8 %; Hematocrit 39.9 % (38-53); Hemoglobin 13.9 g/dL (13.2-16.3); Lymphocyte % 28.7 %; Mean Corpuscular Hemoglobin 33.1 pg (27-33); Mean Corpuscular Hgb Conc 34.9 g/dL (31-36); Mean Corpuscular Volume 95.1 fL (80-97); Mean Platelet Volume 8.2 fL (7.5-11.2); Nucleated Red Blood Cells % 0.1 %/100WBC (0.0-0.8); Platelet Count 189 10^3/uL (150-450); Red Cell Distribution Width 15.3 % (12-17); White Blood Count 7.9 10^3/uL (3.6-10.2)
[2024-02-19] MEDS: NS 0.9% 1000 ml BAG 1,000 ML IV SCH (06:20)
[2024-02-19 06:40] LABS: Creatinine, Serum 0.93 mg/dL (0.67-1.17); Magnesium 2.2 mg/dL (1.9-2.7); Potassium 4.4 mmol/L (3.5-5.0); eGFR CKD-EPI 94.6 (>60)
[2024-02-19] MEDS ORDERED: Midazolam 5 mg/5 ml VIAL 1 mg/ml 5 ml VIAL (5 mg) ONE (09:05)
[2024-02-19] MEDS ORDERED: fentaNYL 100 mcg/2 ml 50 MCG/ML VIAL ONE (09:06)
[2024-02-19] MEDS ORDERED: Iohexol 350 (CONTRAST) 200 ML MDV IV ONE (09:06)
[2024-02-19] MEDS ORDERED: Heparin 2 UNITS/ML 1000 mls 2,000 ML IV ONE (09:06)
[2024-02-19] MEDS ORDERED: nitroGLYCERIN DRIP 25,000 MCG/250 ML BTL ONE (09:07)
[2024-02-19] MEDS ORDERED: VERAPAMIL 2.5 MG/ML 2 ML VIAL ** 5 mg/2 ml ONE (09:07)
[2024-02-19] MEDS ORDERED: Lidocaine 1% MPF 5 ML VIAL ONE (09:07)
[2024-02-19] MEDS ORDERED: Heparin 1,000 UNIT/ML 10 ml (10,000 UNITS) CATHLAB/DIALYSIS ONE (09:07)
[2024-02-19] MEDS: fentaNYL 100 mcg/2 ml 50 MCG/ML VIAL IV SLOW PU ONE (09:25)
[2024-02-19] MEDS: Midazolam 10 mg/10 ml VIAL 1 mg/ml 10 ml VIAL (10 mg) IV SLOW PU ONE (09:25)
[2024-02-19] MEDS: Enoxaparin 40 MG/0.4 ML SYR SUBCUT SCH (22:10)
[2024-02-19] MEDS: Albuterol HFA INHALER 8 gm MDI INH PRN (23:28)
[2024-02-20 10:24] VITALS: BP 135/70
== END 2024-02-20 11:10 | disposition home or self-care (01) | DRG 281 ==
LOC: ED 20:05 → SUATTDRO 21:38 → EDHOLD 21:38 → MEDTELE 23:29
PROVIDERS: ADMIT Hospitalist; ATTEND Hospitalist